=== PATIENT | male | born 1980 | race Caucasian/White ===

== ENCOUNTER 2019-06-02 18:05 | Emergency (ER) | payer OTHER ==
[2019-06-02] MEDS ORDERED: LIDOCAINE 1% MPF 5 ML VIAL ONE (19:35)
--- NOTE | 2019-06-02 19:57 | ER ---
Nurse's Notes [facility] Name: Frantz Alvarez Age: 38 yrs Sex: Male : 1980 Arrival Date: 06/02/2019 Time: 18:09 Bed 27 Private MD: Diagnosis: Laceration without foreign body of right hand-ring finger, dorsal Presentation: 06/02 18:42 Presenting complaint: Patient states: Was working on truck taillight and cut right ring jl7 finger, no uncontrolled bleeding. Transition of care: patient was not received from another setting of care. Onset of symptoms was June 02, 2019 at 17:30. Risk Assessment: Do you want to hurt yourself or someone else? Patient reports no desire to harm self or others. Initial Sepsis Screen: Does the patient meet any 2 criteria? No. Patient's initial sepsis screen is negative. Does the patient have a suspected source of infection? No. Patient's initial sepsis screen is negative. Care prior to arrival: None. 18:42 Method Of Arrival: Ambulatory [facility] 18:42 Acuity: LIZBETH 4 jl7 Historical: - Allergies: 18:46 No Known Allergies; jl7 - Home Meds: 18:46 None [Active]; jl7 - PMHx: 18:46 None; jl7 - PSHx: 18:46 Appendectomy; jl7 - Immunization history:: Adult Immunizations unknown, Last tetanus immunization: unknown. - Social history:: Smoking status: Patient/guardian denies using tobacco. - Ebola Screening: : No symptoms or risks identified at this time. - Family history:: not pertinent. Screenin:55 Abuse screen: Denies threats or abuse. Nutritional screening: No deficits noted. tr5 Tuberculosis screening: No symptoms or risk factors identified. Fall Risk None identified. Assessment: 19:55 General: Appears uncomfortable, Behavior is calm, cooperative, appropriate for age. tr5 Pain: Complains of pain in right hand Pain does not radiate. Neuro: Level of Consciousness is awake, alert, obeys commands, Oriented to person, place, time. Cardiovascular: Heart tones present Capillary refill < 3 seconds Pulses are all present. Edema is absent. Respiratory: Airway is patent Respiratory effort is even, unlabored, Respiratory pattern is regular, symmetrical. GI: No signs and/or symptoms were reported involving the gastrointestinal system. : No signs and/or symptoms were reported regarding the genitourinary system. EENT: No signs and/or symptoms were reported regarding the EENT system. Derm: Wound noted right hand. Injury Description: Laceration. Injury Description: Laceration sustained to right hand is not bleeding. Vital Signs: 18:46 BP 140 / 89; Pulse 85; Resp 16 S; Temp 97.9(O); Pulse Ox 96% on R/A; Pain 2/10; jl7 ED Course: 18:09 Patient arrived in ED. mr 18:46 Triage completed. jl7 18:46 Arm band placed on right wrist. EKG completed in triage. Results shown to MD. 7 18:47 Patient placed in waiting room, Patient notified of wait time. lm7 19:24 Aditya Mcdonald, LAURA is Primary Nurse. tr5 19:26 Waqas Tellez MD is Attending Physician. [facility] 19:55 Call light in reach. Side rails up X 1. Side rails up X2. tr5 20:58 Hand Right 3 View XRAY In Process Unspecified. EDKY 21:23 No provider procedures requiring assistance completed. Patient did not have IV access tr5 during this emergency room visit. Administered Medications: 20:29 Drug: Lidocaine-Epinephrine -1%: (1:100,000) 5 ml Volume: 20 ml; Route: Infiltration; tr5 Outcome: 19:56 Discharge ordered by . [facility] 21:23 Discharged to home ambulatory. tr5 21:23 Condition: stable 21:23 Discharge instructions given to patient, Instructed on discharge instructions, follow up and referral plans. medication usage, Demonstrated understanding of instructions, follow-up care, medications. 21:25 Patient left the ED. tr5 Signatures: Dispatcher [employer] EDKY Waqas Tellez MD MD cha Rivera, Mary mr SteeleLencho, RN RN jlAditya Stanford, LAURA RN tr5
--- NOTE | 2019-06-02 19:57 | EDPHYS ---
Physician Documentation [facility] Name: Frantz Alvarez Age: 38 yrs Sex: Male : 1980 Arrival Date: 06/02/2019 Time: 18:09 Bed 27 Private MD: ED Physician Waqas Tellez HPI: 06/02 19:50 This 38 yrs old Male presents to ER via Ambulatory with complaints of Finger emilio laceration. 19:50 The patient or guardian reports decreased range of motion, a laceration, irregular, emilio complex, 2.54 cm(s), pain. The complaints affect the PIP of right ring finger. Context: The problem was sustained at home. Onset: The symptoms/episode began/occurred just prior to arrival. Modifying factors: The symptoms are alleviated by elevation, the symptoms are aggravated by movement, dependent position. Associated signs and symptoms: The patient has no apparent associated signs or symptoms. Severity of symptoms: At their worst the symptoms were mild, in the emergency department the symptoms are unchanged. The patient has not experienced similar symptoms in the past. Historical: - Allergies: 18:46 No Known Allergies; jl7 - Home Meds: 18:46 None [Active]; jl7 - PMHx: 18:46 None; jl7 - PSHx: 18:46 Appendectomy; jl7 - Immunization history:: Adult Immunizations unknown, Last tetanus immunization: unknown. - Social history:: Smoking status: Patient/guardian denies using tobacco. - Ebola Screening: : No symptoms or risks identified at this time. - Family history:: not pertinent. ROS: 19:50 Constitutional: Negative for fever, chills, and weight loss, Eyes: Negative for injury, emilio pain, redness, and discharge, ENT: Negative for injury, pain, and discharge, Neck: Negative for injury, pain, and swelling, Cardiovascular: Negative for chest pain, palpitations, and edema, Respiratory: Negative for shortness of breath, cough, wheezing, and pleuritic chest pain, Abdomen/GI: Negative for abdominal pain, nausea, vomiting, diarrhea, and constipation, Back: Negative for injury and pain, : Negative for injury, bleeding, discharge, and swelling, Skin: Negative for injury, rash, and discoloration, Neuro: Negative for headache, weakness, numbness, tingling, and seizure, Psych: Negative for depression, anxiety, suicide ideation, homicidal ideation, and hallucinations, Allergy/Immunology: Negative for hives, rash, and allergies, Endocrine: Negative for neck swelling, polydipsia, polyuria, polyphagia, and marked weight changes, Hematologic/Lymphatic: Negative for swollen nodes, abnormal bleeding, and unusual bruising. 19:50 MS/extremity: Positive for decreased range of motion, pain, swelling, tenderness, of the dorsal aspect of proximal phalanx of right ring finger. Exam: 19:50 Constitutional: This is a well developed, well nourished patient who is awake, alert, emilio and in no acute distress. Head/Face: Normocephalic, atraumatic. Eyes: Pupils equal round and reactive to light, extra-ocular motions intact. Lids and lashes normal. Conjunctiva and sclera are non-icteric and not injected. Cornea within normal limits. Periorbital areas with no swelling, redness, or edema. ENT: Nares patent. No nasal discharge, no septal abnormalities noted. Tympanic membranes are normal and external auditory canals are clear. Oropharynx with no redness, swelling, or masses, exudates, or evidence of obstruction, uvula midline. Mucous membranes moist. Neck: Trachea midline, no thyromegaly or masses palpated, and no cervical lymphadenopathy. Supple, full range of motion without nuchal rigidity, or vertebral point tenderness. No Meningismus. Chest/axilla: Normal chest wall appearance and motion. Nontender with no deformity. No lesions are appreciated. Cardiovascular: Regular rate and rhythm with a normal S1 and S2. No gallops, murmurs, or rubs. Normal PMI, no JVD. No pulse deficits. Respiratory: Lungs have equal breath sounds bilaterally, clear to auscultation and percussion. No rales, rhonchi or wheezes noted. No increased work of breathing, no retractions or nasal flaring. Abdomen/GI: Soft, non-tender, with normal bowel sounds. No distension or tympany. No guarding or rebound. No evidence of tenderness throughout. Back: No spinal tenderness. No costovertebral tenderness. Full range of motion. Male : Normal genitalia with no discharge or lesions. MS/ Extremity: Pulses equal, no cyanosis. Neurovascular intact. Full, normal range of motion. Neuro: Awake and alert, GCS 15, oriented to person, place, time, and situation. Cranial nerves II-XII grossly intact. Motor strength 5/5 in all extremities. Sensory grossly intact. Cerebellar exam normal. Normal gait. Psych: Awake, alert, with orientation to person, place and time. Behavior, mood, and affect are within normal limits. 19:50 Skin: injury, laceration(s), the wound is approximately 2.54 cm(s), with a depth of .25 cm(s), of the dorsal aspect of proximal phalanx of right ring finger. Vital Signs: 18:46 BP 140 / 89; Pulse 85; Resp 16 S; Temp 97.9(O); Pulse Ox 96% on R/A; Pain 2/10; jl7 Laceration: 19:50 Wound Repair of 2.5cm ( 1.0in ) subcutaneous laceration to dorsal aspect of proximal emilio phalanx of right ring finger. Distal neuro/vascular/tendon intact. Anesthesia: Local anesthetic administered with 5 mls of 1% lidocaine w/ Epi. Wound prep: Moderate cleansing by me. Skin closed with 4 5-0 Prolene using interrupted sutures and sterile technique. Dressed with Neosporin. Patient tolerated well. MDM: 19:26 Patient medically screened. [facility] 19:54 Data reviewed: vital signs, nurses notes, radiologic studies, plain films. [facility] 06/02 19:50 Order name: Hand Right 3 View XRAY [facility] 06/02 19:49 Order name: Prolene, Sutures; Complete Time: 20:01 [facility] 06/02 19:49 Order name: Dressing - Wound; Complete Time: 20:01 [facility] 06/02 19:49 Order name: Gloves, Sterile; Complete Time: 20:00 [facility] 06/02 19:49 Order name: Setup Suture Tray; Complete Time: 20:00 [facility] 06/02 19:49 Order name: Wound Care; Complete Time: 21:00 [facility] Administered Medications: 20:29 Drug: Lidocaine-Epinephrine -1%: (1:100,000) 5 ml Volume: 20 ml; Route: Infiltration; tr5 Disposition: 06/02/19 19:56 Discharged to Home. Impression: Laceration without foreign body of right hand - ring finger, dorsal. - Condition is Stable. - Discharge Instructions: Laceration Care, Adult, Laceration Care, Adult, [id number]. - Prescriptions for Keflex 500 mg Oral Capsule - take 1 capsule by ORAL route every 6 hours for 7 days; 28 capsule. Tylenol- Codeine #3 300-30 mg Oral Tablet - take 2 tablets by ORAL route every 6 hours As needed; 20 tablet. - Medication Reconciliation Form, Thank You Letter, Antibiotic Education, Prescription Opioid Use form. - Follow up: Private Physician; When: 2 - 3 days; Reason: Recheck today's complaints, Continuance of care, Re-evaluation by your physician. - Problem is new. - Symptoms have improved. Signatures: Dispatcher [employer] EDWaqas Ojeda MD MD cha Leal, Jahala RN RN jl7 Aditya Mcdonald RN RN tr5 Corrections: (The following items were deleted from the chart) 21:25 19:56 06/02/2019 19:56 Discharged to Home. Impression: Laceration without foreign body tr5 of right hand - ring finger, dorsal. Condition is Stable. Forms are Medication Reconciliation Form, Thank You Letter, Antibiotic Education, Prescription Opioid Use. Follow up: Private Physician; When: 2 - 3 days; Reason: Recheck today's complaints, Continuance of care, Re-evaluation by your physician. Problem is new. Symptoms have improved. emilio
[2019-06-02 21:31] VITALS: BP 140/89; TEMP 97.9; O2SAT 96
--- NOTE | 2019-06-03 07:42 | RAD REPORT ---
EXAM DESCRIPTION: RAD - Hand Right 3 View - 06/02/2019 8:58 pm CLINICAL HISTORY: Right hand pain, laceration to the ring finger COMPARISON: None. FINDINGS: No fracture is identified. There is no dislocation or periosteal reaction noted. No forei gn body identified. Soft tissue edema is present near the base of the fourth digit. IMPRESSION: No acute bone or joint finding. No foreign body.
== END 2019-06-02 21:25 | disposition home or self-care (01) ==
LOC: ER 18:05
PROC: 0JQJ0ZZ Repair Right Hand Subcutaneous Tissue and Fascia, Open Approach (ICD-10-PCS; principal; 2019-06-02)
DX: S61.214A Laceration without foreign body of right ring finger without damage to nail, initial encounter (principal); W45.8XXA Other foreign body or object entering through skin, initial encounter; Y93.9 Activity, unspecified; Y92.009 Unspecified place in unspecified non-institutional (private) residence as the place of occurrence of the external cause

== ENCOUNTER 2019-06-12 14:39 | Emergency (ER) | payer OTHER ==
--- NOTE | 2019-06-12 15:44 | ER ---
Nurse's Notes [facility] Name: Frantz Alvarez Age: 38 yrs Sex: Male : 1980 Arrival Date: 06/12/2019 Time: 14:41 Bed 12 Private MD: Diagnosis: Encounter for removal of sutures Presentation: 06/12 14:42 Presenting complaint: Sutures on right right finger 10 days ago, here for removal. hb Transition of care: patient was not received from another setting of care. Onset of symptoms was June 12, 2019. Risk Assessment: Do you want to hurt yourself or someone else? Patient reports no desire to harm self or others. Initial Sepsis Screen: Does the patient meet any 2 criteria? No. Patient's initial sepsis screen is negative. Does the patient have a suspected source of infection? No. Patient's initial sepsis screen is negative. Care prior to arrival: None. 14:42 Method Of Arrival: Ambulatory hb 14:42 Acuity: LIZBETH 4 hb Historical: - Allergies: 14:43 No Known Allergies; hb - Home Meds: 14:43 None [Active]; hb - PMHx: 14:43 None; hb - PSHx: 14:43 Appendectomy; hb - Immunization history:: Adult Immunizations up to date. - Social history:: Smoking status: Patient/guardian denies using tobacco. - Ebola Screening: : No symptoms or risks identified at this time. Vital Signs: 14:43 BP 139 / 89; Pulse 72; Resp 16; Temp 97.8; Pulse Ox 100% on R/A; Weight 151.05 kg; hb Height 6 ft. 4 in. (193.04 cm); Pain 0/10; 14:43 Body Mass Index 40.53 (151.05 kg, 193.04 cm) hb ED Course: 14:41 Patient arrived in ED. mr 14:43 Triage completed. hb 14:43 Arm band placed on. hb 15:39 Tristan Castrejon PA is [facility] britta 15:39 Herbert Cortez MD is Attending Physician. jrRick Administered Medications: No medications were administered Outcome: 15:43 Discharge ordered by . britta 15:43 Patient left the ED. hb Signatures: Gretel Fuentes mr Tristan Castrejon PA PA jr8 Us, Kendra, RN RN hb
--- NOTE | 2019-06-12 15:44 | EDPHYS ---
Physician Documentation [facility] Name: Frantz Alvarez Age: 38 yrs Sex: Male : 1980 Arrival Date: 06/12/2019 Time: 14:41 Bed 12 Private MD: ED Physician Herbert Cortez HPI: 06/12 15:40 This 38 yrs old Male presents to ER via Ambulatory with complaints of Suture jr8 Removal. 15:40 The patient has sutures on the dorsal aspect of middle phalanx of right ring finger. jr8 Previous treatment: The patient was initially treated 10 day(s) ago. Sutures/pepe progress: The patient has no c/o's. The wound is well-healing with no redness, swelling, discharge, or dehiscence reported. Historical: - Allergies: 14:43 No Known Allergies; hb - Home Meds: 14:43 None [Active]; hb - PMHx: 14:43 None; hb - PSHx: 14:43 Appendectomy; hb - Immunization history:: Adult Immunizations up to date. - Social history:: Smoking status: Patient/guardian denies using tobacco. - Ebola Screening: : No symptoms or risks identified at this time. ROS: 15:40 Skin: Positive for well healed laceration to dorsum of right fourth phalange . jr8 Exam: 15:41 Skin: Warm, dry with normal turgor. Normal color with no rashes, no lesions, and no jr8 evidence of cellulitis. Well healed laceration to right fourth dorsal phalnge Vital Signs: 14:43 BP 139 / 89; Pulse 72; Resp 16; Temp 97.8; Pulse Ox 100% on R/A; Weight 151.05 kg; hb Height 6 ft. 4 in. (193.04 cm); Pain 0/10; 14:43 Body Mass Index 40.53 (151.05 kg, 193.04 cm) hb Procedures: 15:42 Suture/Staple removal: Removed 5 sutures, from dorsal aspect of middle phalanx of right jr8 ring finger, site appears well healed, Patient tolerated well. MDM: 15:39 Patient medically screened. jr8 15:42 Data reviewed: vital signs, nurses notes, and as a result, I will discharge patient. jr8 Administered Medications: No medications were administered Disposition: 06/13 09:14 Co-signature as Attending Physician, Herbert Cortez MD I agree with the assessment and kdr plan of care. Disposition: 06/12/19 15:43 Discharged to Home. Impression: Encounter for removal of sutures. - Condition is Stable. - Discharge Instructions: Stitches, Pepe, or Adhesive Wound Closure, Suture Removal, Care After. - Medication Reconciliation Form, Thank You Letter form. - Follow up: Private Physician; When: As needed. - Problem is an ongoing problem. - Symptoms have improved. Signatures: Herbert Cortez MD MD [facility] Tristan Castrejon PA PA jr8 Kendra Us, RN RN Corrections: (The following items were deleted from the chart) 06/12 15:43 15:43 06/12/2019 15:43 Discharged to Home. Impression: Encounter for removal of hb sutures. Condition is Stable. Forms are Medication Reconciliation Form, Thank You Letter, Antibiotic Education, Prescription Opioid Use. Follow up: Private Physician; When: As needed. Problem is an ongoing problem. Symptoms have improved. jr8
[2019-06-12 15:58] VITALS: BP 139/89; TEMP 97.8; O2SAT 100
== END 2019-06-12 15:43 | disposition home or self-care (01) ==
LOC: ER 14:39
DX: Z48.02 Encounter for removal of sutures (principal)
CPT/HCPCS: 99281